=== PATIENT | female | born 1960 | race Caucasian/White ===

== ENCOUNTER 2018-08-12 01:58 | Emergency (ER) | payer OTHER ==
--- NOTE | 2018-08-12 02:13 | EDPHY ---
H & P Stated Complaint: Left Shoulder Injury Time Seen by Provider: 08/12/18 02:13 HPI/ROS: HPI CHIEF COMPLAINT: Left shoulder injury. HISTORY OF PRESENT ILLNESS: 58-year-old female, presents emergency room left shoulder pain. Patient reports on Monday morning she was getting changed own toward costume and this required her to put her left arm up above her head and back she immediately felt some pain when she did this. However the pain is progressively gotten worse. She now is unable to move her left shoulder. With any range of motion specifically abduction of her left arm causes her great discomfort to her left shoulder. It is tender palpation over the lateral and anterior left shoulder joint. No crepitus. No visible swelling. She has good distal pulse good cap refill, good medical/surgery registered nurse strength, no arm weakness but has limited range of motion due to pain. Able to move her elbow, wrist and hand appropriately. No focal numbness or tingling. With range of motion of the shoulder she has discomfort mainly lateral and anterior shoulder. Past Medical History: Significant medical history for obesity, obstructive sleep apnea, diabetes Past Surgical History: Denies recent surgery. Social History: Denies drugs alcohol tobacco. Lives in [facility]. Family History: Noncontributory ROS REVIEW OF SYSTEMS: 10 Systems were reviewed and negative with the exception of the elements mentioned in the history of present illness. Exam Constitutional triage nursing summary reviewed, vital signs reviewed, awake/ alert. Eyes normal conjunctivae and sclera, EOMI, PERRLA. HENT normal inspection, atraumatic, moist mucus membranes, no epistaxis, neck supple/ no meningismus, no raccoon eyes. Respiratory clear to auscultation bilaterally, normal breath sounds, no respiratory distress, no wheezing. Cardiovascular rate normal, regular rhythm, no murmur, no edema, distal pulses normal. Gastrointestinal soft, non-tender, no rebound, no guarding, normal bowel sounds, no distension, no pulsatile mass. Genitourinary no CVA tenderness. Musculoskeletal no midline vertebral tenderness, full range of motion, no calf swelling, no tenderness of extremities, no meningismus, good pulses, neurovascularly intact. Skin pink, warm, & dry, no rash, skin atraumatic. Neurologic awake, alert and oriented x 3, AAOx3, moves all 4 extremities equally, motor intact, sensory intact, CN II-XII intact, normal cerebellar, normal vision, normal speech. Psychiatric normal mood/affect. Heme/Lymph/Immune no lymphadenopathy. Differential Diagnosis: Includes but is not limited to in a particular order left shoulder strain, rotator cuff injury, fracture, dislocation, frozen shoulder Medical Decision Making: Plan for this patient x-ray left shoulder, [place] for pain control, sling, and close orthopedic follow-up. Re-evaluation: X-ray of the left shoulder reviewed by myself negative for acute fracture. Patient placed in a sling, ice pack and received [place] here resting comfortably. Left arm is neurovascularly intact with good distal pulse, good cap refill, has limited range of motion due to pain. Do recommend she follows up with Orthopedics. I believe she is rotator cuff injury. We discussed return precautions return emergency room she develops worsening symptoms questions or concerns. Source: Patient - Personal History Current Tetanus/Diphtheria Vaccine: Yes Current Tetanus Diphtheria and Acellular Pertussis (TDAP): Yes - Medical/Surgical History Hx Asthma: No Hx Chronic Respiratory Disease: No Hx Diabetes: No Hx Cardiac Disease: No Hx Renal Disease: No Hx Cirrhosis: No Hx Alcoholism: No Hx HIV/AIDS: No Hx Splenectomy or Spleen Trauma: No Other PMH: Hypothyroid, Type 2 diabetes - Social History Smoking Status: Never smoked Constitutional: Initial Vital Signs Temperature (C) 36.6 C 08/12/18 02:02 Heart Rate 75 08/12/18 02:02 Respiratory Rate 18 08/12/18 02:02 Blood Pressure 151/92 H 08/12/18 02:02 O2 Sat (%) 94 08/12/18 02:02 O2 Delivery Mode Room Air Allergies/Adverse Reactions: No Known Allergies Allergy (Unverified 08/12/18 02:01) Home Medications: Medication Instructions Recorded Ibuprofen [Motrin (*)] 800 mg PO Q6-8PRN #14 tab 08/12/18 Levothyroxine 08/12/18 Metformin HCl [Fortamet] 500 mg PO DAILY 08/12/18 Medical Decision Making - Data Points Medications Given: Discontinued Medications Hydrocodone Bitart/Acetaminophen ([place] 10/325) 1 tab PO EDNOW ONE Stop: 08/12/18 02:39 Last Admin: 08/12/18 02:44 Dose: Not Given Hydrocodone Bitart/Acetaminophen ([place] 5/325) 2 tab PO EDNOW ONE Stop: 08/12/18 02:44 Last Admin: 08/12/18 02:48 Dose: 2 tab Departure - Departure Disposition: Home, Routine, Self-Care Clinical Impression: Rotator cuff injury Condition: Good Instructions: Hydrocodone/Acetaminophen (By mouth), Rotator Cuff Injury (ED) Additional Instructions: 1. Recommend rest, and ice. 2. Sling for support and comfort. 3. Anti-inflammatory pain medicine 4. [place] severe pain 5. Please follow up with Orthopedics call for follow-up appointment. Referrals: Rickie Irby MD [Primary Care Provider] - As per Instructions Jatinder Hill MD [Medical Doctor] - As per Instructions Prescriptions: Ibuprofen [Motrin (*)] 800 mg PO Q6-8PRN #14 tab
[2018-08-12] MEDS ORDERED: HYDROCODONE/APAP 10/325 TAB PO ONE (02:38)
[2018-08-12] MEDS ORDERED: HYDROCOD/APAP 5/325 PREPACK#6 BTL TAKEHOME ONE (02:38)
[2018-08-12] MEDS ORDERED: HYDROCODONE/APAP 5/325 TAB ONE (02:43)
[2018-08-12] MEDS ORDERED: HYDROCODONE/APAP 5/325 TAB PO ONE (02:43)
[2018-08-12 03:46] VITALS: BP 140/93
== END 2018-08-12 03:46 | disposition home or self-care (01) ==
DX: S46.012A Strain of muscle(s) and tendon(s) of the rotator cuff of left shoulder, initial encounter (principal); X50.0XXA Overexertion from strenuous movement or load, initial encounter; Y93.89 Activity, other specified; E11.9 Type 2 diabetes mellitus without complications; E03.9 Hypothyroidism, unspecified; G47.33 Obstructive sleep apnea (adult) (pediatric); E66.9 Obesity, unspecified; Z68.41 Body mass index [BMI] 40.0-44.9, adult